=== PATIENT | male | born 1960 | race Caucasian/White ===

== ENCOUNTER 2018-03-20 19:22 | Emergency (ER) | payer OTHER ==
[~2018-03-20] VITALS: Ht 175.3 cm; Wt 93.0 kg
[~2018-03-20 19:22] MED LIST: LEVO125T PO
[2018-03-20 19:25] VITALS: BP 160/97
[2018-03-20] MEDS ORDERED: DEXAMETHASONE 4 MG/ML, 1ML PO ONE (20:00)
[2018-03-20] MEDS ORDERED: DEXAMETHASONE 4 MG TABLET ONE (20:09)
[2018-03-20] MEDS ORDERED: DEXAMETHASONE 4 MG/ML, 1ML ONE (20:12)
== END 2018-03-20 20:32 | disposition home or self-care (01) ==
LOC: ED 20:04
DX: J02.8 Acute pharyngitis due to other specified organisms (principal); B97.89 Other viral agents as the cause of diseases classified elsewhere; I10 Essential (primary) hypertension; E03.9 Hypothyroidism, unspecified
CPT/HCPCS: 71046; 87081; 87880; 99284; J1100

== ENCOUNTER 2018-03-21 07:20 | Emergency (ER) | payer OTHER ==
[~2018-03-21] VITALS: Ht 175.3 cm; Wt 92.9 kg
[2018-03-21 07:56] LABS: MEAN CORPUSCULAR HGB CONC 33.9 g/dL (33.2-36.2); MEAN CORPUSCULAR VOLUME 91.3 fL (81-97); PLATELET COUNT 192 x10^3/uL (130-400); RED BLOOD COUNT 5.57 x10^6/uL (4.38-5.82); RED CELL DISTRIBUTION WIDTH 12.6 % (9.4-14.8)
[2018-03-21 08:08] LABS: ALBUMIN 4.2 g/dL (3.4-5.0); ANION GAP 9 mmol/L (5-15); CALCIUM 9.4 mg/dL (8.5-10.1); CHLORIDE 106 mmol/L (98-107); CREATININE 1.08 mg/dL (0.7-1.3)
[2018-03-21 08:18] LABS: FREE T4 (FREE THYROXINE) 1.11 ng/dL (0.76-1.46); THYROID STIMULATING HORMONE 0.914 mIU/L (0.358-3.740)
[2018-03-21 08:22] LABS: BASOPHILS # (AUTO) 0.08 x10^3/uL (0-0.1); BASOPHILS % (AUTO) 1 % (0-1); EOSINOPHILS % (AUTO) 0 % (1-7); LYMPHOCYTES # (AUTO) 0.56 x10^3/uL (1-3.4); LYMPHOCYTES % (AUTO) 4 % (22-44); MD SCAN; MONOCYTES # (AUTO) 0.07 x10^3/uL (0.2-0.8); MONOCYTES % (AUTO) 1 % (2-9); NEUTROPHILS # (AUTO) 12.11 x10^3/uL (1.8-6.8); NEUTROPHILS % (AUTO) 95 % (42-75)
[2018-03-21 09:01] VITALS: BP 121/78
== END 2018-03-21 09:10 | disposition home or self-care (01) ==
LOC: ED 09:00
DX: R00.2 Palpitations (principal); J02.9 Acute pharyngitis, unspecified; I10 Essential (primary) hypertension; E03.9 Hypothyroidism, unspecified
CPT/HCPCS: 36415; 71045; 80048; 82040; 84439; 84443; 85025; 93005; 99284

== ENCOUNTER 2019-04-16 20:59 | Emergency (ER) | payer OTHER ==
[~2019-04-16] VITALS: Ht 175.3 cm; Wt 95.7 kg
[2019-04-16 21:02] VITALS: BP 164/88
--- NOTE | 2019-04-16 21:23 | NUR ---
PT REPORTS NOSE BLEED TODAY 'GOING DOWN BACK OF THROAT' HAS ENT APPOINTMENT 04/2018, NO CURRENT BLEEDING. PER TRIAGE NOTE NO NOSE BLEEDING AT THIS TIME PT WILL BE DC'D
--- NOTE | 2019-04-16 21:34 | NUR ---
GIVEN DC INSTRUCTION PT UNDERSTOOD PT UP AMBULATED TO CHECK OUT
== END 2019-04-16 21:36 | disposition home or self-care (01) ==
LOC: ED 21:20
DX: R04.0 Epistaxis (principal); I10 Essential (primary) hypertension; E03.9 Hypothyroidism, unspecified
CPT/HCPCS: 99282

== ENCOUNTER 2019-05-08 18:52 | Emergency (ER) | payer OTHER ==
[~2019-05-08] VITALS: Ht 175.3 cm; Wt 95.5 kg
[2019-05-08 19:23] VITALS: BP 150/80
== END 2019-05-08 19:43 | disposition home or self-care (01) ==
LOC: ED 19:20
DX: I10 Essential (primary) hypertension (principal); E89.0 Postprocedural hypothyroidism
CPT/HCPCS: 99281